=== PATIENT | male | born 1955 | race Caucasian/White ===

== ENCOUNTER 2021-08-25 05:48 | Inpatient (IN) | payer MEDICARE, BC ==
[~2021-08-25] VITALS: Ht 170.2 cm; Wt 79.1 kg
[2021-08-25] VITALS (26 sets, daily range): BP systolic 83–144; BP diastolic 27–79
[2021-08-25] MEDS ORDERED: diphenhydrAMINE 25mg capsule PO PRN ×2 (06:15→09:00)
[2021-08-25] MEDS ORDERED: normal saline 1,000 ML IV SCH (06:15)
[2021-08-25] MEDS ORDERED: LORazepam 0.5 MG tablet PO PRN (06:15)
[2021-08-25] MEDS ORDERED: nitroGLYCERIN 0.4mg SUBLingual tab SL PRN ×2 (06:15→09:55)
[2021-08-25] MEDS ORDERED: LISI20TA28 PO (06:28)
[2021-08-25] MEDS ORDERED: HYDR-3972 PO (06:28)
[2021-08-25] MEDS ORDERED: NITR0.4T48 (06:28)
[2021-08-25] MEDS ORDERED: BACL10TA PO (06:28)
[2021-08-25] MEDS ORDERED: NITR1PAT63 TOP (06:28)
[2021-08-25] MEDS ORDERED: potassium Cl 2 mEq/ml inj IV ONE (07:00)
[2021-08-25] MEDS ORDERED: heparin 10,000 units/1 ML INJ ONE (07:00)
[2021-08-25] MEDS ORDERED: papaverine 30 mg/ml 2ml inj. ONE (07:00)
[2021-08-25] MEDS ORDERED: FLU VACC QS2021-22(6MOS UP)/PF 60 MCG/0.5 ML SYRINGE IM ONE (07:25)
[2021-08-25] MEDS ORDERED: midazolam 1 mg/ML 2ml injection ONE ×3 (07:56→10:50)
[2021-08-25] MEDS ORDERED: LIDOcaine 1% (10mg/ml)w/preservative inj. 20ml MDV ONE (07:56)
[2021-08-25] MEDS ORDERED: iohexol 350 MG/ML 50ML vial IV ONE (07:56)
[2021-08-25] MEDS ORDERED: iohexol 350MG/ML 100ml bottle IV ONE (07:56)
[2021-08-25] MEDS ORDERED: fentaNYL/PF 50MCG/1 ML 2ML syringe ONE (07:56)
--- NOTE | 2021-08-25 08:15 | NUR ---
Pt to Neurology Tech
[2021-08-25] MEDS ORDERED: MESSAGE TO PHARMACY IJ ONE (09:00)
[2021-08-25] MEDS ORDERED: vancomycin/NS 1 GM ADD-VANTAGE 250 ML IV ONE (09:00)
[2021-08-25] MEDS ORDERED: potassium Cl 20 mEq SR tablet PO PRN ×2 (09:00→17:25)
[2021-08-25] MEDS ORDERED: MESSAGE TO NURSING PO ONE ×5 (09:00→10:00)
[2021-08-25] MEDS ORDERED: cefazolin/dext.iso 2gm/50ml 50 ML IV ONE (09:00)
[2021-08-25] MEDS ORDERED: gabapentin 400mg capsule PO ONE (09:00)
[2021-08-25] MEDS ORDERED: potassium Cl 20mEq/100mL bag 100 ML IV PRN (09:00)
[2021-08-25] MEDS ORDERED: dextrose 50%-water 50ml dispensing syringe IV PRN ×2 (09:00→17:25)
[2021-08-25] MEDS ORDERED: potassium Cl 40MEQ/1/2NS 520ml 520 ML IV PRN (09:00)
[2021-08-25] MEDS ORDERED: ondansetron 4mg rapidly disintigrating tab PO PRN (09:00)
[2021-08-25] MEDS ORDERED: potassium Cl 40MEQ/250ML bag 250 ML IV PRN (09:00)
[2021-08-25] MEDS ORDERED: magnesium 2GM in 50ml NS 50 ML IV PRN ×2 (09:00→17:25)
[2021-08-25] MEDS ORDERED: HYDROcodone/acetaminophen 5mg/325mg tablet PO PRN ×2 (09:00→09:55)
[2021-08-25] MEDS ORDERED: insulin glargine (Lantus) pen - multi-dose SQ PRN ×2 (09:00→17:25)
[2021-08-25] MEDS ORDERED: magnesium 4gm in 100ml NS 100 ML IV PRN ×2 (09:00→17:25)
[2021-08-25] MEDS ORDERED: MALTODEXTRIN/FRUCTOSE 0.68 KCAL/ML LIQUID 296ML BOTTLE PO ONE (09:00)
[2021-08-25] MEDS ORDERED: potassium CL 10mEq/100ml bag 100 ML IV PRN ×2 (09:00→17:25)
[2021-08-25] MEDS ORDERED: heparin 25,000 UNIT/250ml bag 250 ML IV ONE (09:16)
[2021-08-25] MEDS ORDERED: heparin 1,000unit/ml 10ml vial 10 ML ONE (09:16)
--- NOTE | 2021-08-25 09:35 | NUR ---
Return from rags laborer, pt surgical referral, orders received for pre-op prep.
[2021-08-25] MEDS ORDERED: ceFAZolin 1000mg inj ONE (09:46)
[2021-08-25] MEDS ORDERED: ondansetron/PF 4mg/2ml inj IV PRN ×2 (09:50→17:25)
[2021-08-25] MEDS ORDERED: heparin 25,000 UNIT/250ml bag 250 ML IV SCH (09:55)
[2021-08-25] MEDS ORDERED: HYDROcodone/acetaminophen 10/325mg tab PO PRN (09:55)
[2021-08-25] MEDS ORDERED: heparin 10,000 units/1 ML INJ IV PRN (09:55)
[2021-08-25] MEDS ORDERED: OXAZEpam 15mg capsule PO PRN (09:55)
[2021-08-25] MEDS ORDERED: proCHLORperazine 10 MG/2 ml inj IV PRN (09:55)
[2021-08-25] MEDS ORDERED: ringers solution, lacted 1,000 ML IV ONE (10:45)
[2021-08-25] MEDS ORDERED: SUFENTANIL CITRATE 50 MCG/ML 2ml ampule IV ONE ×2 (10:49→15:59)
[2021-08-25 11:27] LABS: BASOPHILS % (AUTO) 0.7 % (0-1); EOSINOPHILS # (AUTO) 0.1 X10'3 (0-0.9); EOSINOPHILS % (AUTO) 1.4 % (0-6); HEMATOCRIT 39.7 % (42.0-52.0); HEMOGLOBIN 13.2 g/dl (14.0-17.9); LYMPHOCYTES # (AUTO) 1.5 X10'3 (1.1-4.8); LYMPHOCYTES % (AUTO) 27.2 % (21-51); MEAN CORPUSCULAR HEMOGLOBIN 30.7 PG (27.0-31.0); MEAN CORPUSCULAR HGB CONC 33.3 g/dL (33.0-36.5); MEAN CORPUSCULAR VOLUME 92.1 FL (78-98); MEAN PLATELET VOLUME 8.4 FL (7.4-10.4); MONOCYTES # (AUTO) 0.5 X10'3 (0-0.9); MONOCYTES % (AUTO) 8.5 % (2-12); NEUTROPHILS # (AUTO) 3.5 X10'3 (1.8-7.7); NEUTROPHILS % (AUTO) 62.2 % (42-75); PLATELET COUNT 229 X10'3 (140-440); RED BLOOD COUNT 4.31 X10'6 (4.70-6.10); WHITE BLOOD COUNT 5.6 X10'3 (4.5-11.0)
[2021-08-25 11:38] LABS: ALBUMIN 3.3 G/DL (3.4-5.0); ANION GAP 7 (8-16); BLOOD UREA NITROGEN 15 MG/DL (7-18); BUN/CREATININE RATIO 13.9 (5.4-32.0); CALCIUM 8.8 MG/DL (8.5-10.1); CHLORIDE 104 MMOL/L (99-107); CREATININE 1.08 MG/DL (0.60-1.10); GLUCOSE 104 MG/DL (70-104); POTASSIUM 4.3 MMOL/L (3.5-5.1); SODIUM 137 MMOL/L (135-145); eGFR 68 ML/MIN
[2021-08-25 11:40] LABS: HEMOGLOBIN A1C 6.1 % (4.5-6.2)
[2021-08-25 11:53] LABS: ABG BASE EXCESS -2.6 mmol/L (-2.0-2.0); ABG HCO3 20.3 mmol/L (22.0-26.0); ABG OXYGEN SATURATION 96.3 % (94-97); ABG PCO2 (T) 30.1 mmHg (35.0-48.0); FCOHb 0.6 % (0.0-3.9); FO2Hb 95.7 % (94-97)
--- NOTE | 2021-08-25 12:00 | NUR ---
Pre-op CABG prep and testing being done, per orders.
[2021-08-25 12:07] LABS: APTT > 139 SECONDS (22-32)
[2021-08-25] MEDS ORDERED: amiodarone in dextrose, iso-osm 360mg/200ml bag IV ONE (12:17)
[2021-08-25] MEDS ORDERED: isoflurane 100ml inhalation liquid IH ONE (12:17)
[2021-08-25] MEDS ORDERED: nitroGLYCERIN in D5W 50mg/250ml (Tridil) infusion IV ONE (12:17)
[2021-08-25] MEDS ORDERED: rocuronium 10mg/ml inj IV ONE ×2 (12:17→17:55)
[2021-08-25] MEDS ORDERED: DOPamine/D5W 400mg/250ml bag IV ONE (12:17)
[2021-08-25] MEDS ORDERED: protamine sulf. 10mg/ml inj. IV ONE (12:17)
[2021-08-25 12:34] LABS: ABG BASE EXCESS -3.4 mmol/L (-2.0-2.0); ABG HCO3 20.4 mmol/L (22.0-26.0); ABG OXYGEN SATURATION 99.6 % (94-97); ABG PCO2 32.7 mmHg (35.0-48.0); ABG PO2 430.1 mmHg (75.0-100.0); CL (ABG) 107 mmol/L (98-110); FCOHb 0.3 % (0.0-3.9); FMetHb 0.3 % (0.0-1.5); GLUCOSE (ABG) 95 mg/dl (70-105); IONIZED CA (ABG) 1.18 mmol/L (1.10-1.43); K (ABG) 4.3 mmol/L (3.5-5.0); TOTAL HEMOGLOBIN 12.8 G/dl (14.0-18.0)
[2021-08-25] MEDS ORDERED: heparin 10,000 units/1 ML INJ IR ONE (13:23)
[2021-08-25] MEDS ORDERED: papaverine 30 mg/ml 2ml inj. IA ONE (13:24)
[2021-08-25 13:35] LABS: CLARITY,URINE CLEAR (Clear); COLOR,URINE YELLOW (Yellow); GLUCOSE, URINE NEGATIVE (Neg); KETONES,URINE NEGATIVE (Neg); LEUKOCYTE ESTERASE ,URINE NEGATIVE (Neg); NITRITES, URINE NEGATIVE (Neg); OCCULT BLOOD,URINE NEGATIVE (Neg); PROTEIN,URINE NEGATIVE (Neg); UROBILINOGEN,URINE 0.2 E.U/dL (0.2-1.0)
[2021-08-25 13:37] LABS: UA COLLECTION TYPE FOLEY CATH
[2021-08-25 13:39] LABS: ACT @ 1.70 U 346 SEC (193-297); ACT @ 2.84 U 453 SEC (260-420); BASELINE ACT 211 SEC (101-148); PATIENT WEIGHT 79.0k KG
[2021-08-25] MEDS ORDERED: ipratropium/albuterol 3ml nebule IH PRN (14:10)
[2021-08-25 14:18] LABS: ABG BASE EXCESS VENOUS -1.4 mmol/L (-2.0 - 2.0); ABG HCO3 VENOUS 22.8 mmol/L (21.0-28.0); ABG PCO2 VENOUS 35.8 mmHg (41.0-54.0); CL (ABG) 105 mmol/L (98-110); FCOHb VENOUS 0.8 %; FHHb VENOUS 10.6 %; FMetHb VENOUS 0.3 % (0.0 - 0.5); FO2Hb VENOUS 88.3 %; GLUCOSE (ABG) 118 mg/dl (70-105); IONIZED CA (ABG) 0.98 mmol/L (1.10-1.43); TOTAL HEMOGLOBIN 8.4 G/dl (14.0-18.0)
[2021-08-25 14:20] LABS: ABG BASE EXCESS -1.4 mmol/L (-2.0-2.0); ABG HCO3 21.8 mmol/L (22.0-26.0); ABG OXYGEN SATURATION 99.4 % (94-97); ABG PCO2 30.8 mmHg (35.0-48.0); ABG PO2 451.8 mmHg (75.0-100.0); CL (ABG) 106 mmol/L (98-110); FCOHb 0.4 % (0.0-3.9); FMetHb 0.3 % (0.0-1.5); FO2Hb 98.7 % (94-97); GLUCOSE (ABG) 126 mg/dl (70-105); IONIZED CA (ABG) 1.02 mmol/L (1.10-1.43); TOTAL HEMOGLOBIN 8.9 G/dl (14.0-18.0)
[2021-08-25 14:52] LABS: ABG BASE EXCESS 1.7 mmol/L (-2.0-2.0); ABG HCO3 25.6 mmol/L (22.0-26.0); ABG OXYGEN SATURATION 99.4 % (94-97); ABG PCO2 37.4 mmHg (35.0-48.0); CL (ABG) 105 mmol/L (98-110); FCOHb 0.3 % (0.0-3.9); FMetHb 0.3 % (0.0-1.5); FO2Hb 98.8 % (94-97); GLUCOSE (ABG) 134 mg/dl (70-105); IONIZED CA (ABG) 1.03 mmol/L (1.10-1.43); TOTAL HEMOGLOBIN 9.2 G/dl (14.0-18.0)
[2021-08-25 15:27] LABS: ABG BASE EXCESS 4.2 mmol/L (-2.0-2.0); ABG HCO3 28.3 mmol/L (22.0-26.0); ABG OXYGEN SATURATION 99.3 % (94-97); ABG PCO2 40.3 mmHg (35.0-48.0); ABG PO2 327.6 mmHg (75.0-100.0); CL (ABG) 104 mmol/L (98-110); FCOHb 0.1 % (0.0-3.9); FMetHb 0.3 % (0.0-1.5); FO2Hb 98.9 % (94-97); GLUCOSE (ABG) 142 mg/dl (70-105); IONIZED CA (ABG) 0.99 mmol/L (1.10-1.43); TOTAL HEMOGLOBIN 8.5 G/dl (14.0-18.0)
[2021-08-25 15:56] LABS: ABG BASE EXCESS -0.7 mmol/L (-2.0-2.0); ABG HCO3 23.4 mmol/L (22.0-26.0); ABG OXYGEN SATURATION 99.2 % (94-97); ABG PCO2 36.2 mmHg (35.0-48.0); ABG PO2 248.7 mmHg (75.0-100.0); CL (ABG) 108 mmol/L (98-110); FCOHb 0.3 % (0.0-3.9); FMetHb 0.3 % (0.0-1.5); FO2Hb 98.6 % (94-97); GLUCOSE (ABG) 153 mg/dl (70-105); IONIZED CA (ABG) 1.29 mmol/L (1.10-1.43); K (ABG) 5.4 mmol/L (3.5-5.0); TOTAL HEMOGLOBIN 8.3 G/dl (14.0-18.0)
[2021-08-25] MEDS ORDERED: METO-395 PO (16:06)
[2021-08-25] MEDS ORDERED: NITR0.4T51 SL (16:06)
[2021-08-25] MEDS ORDERED: BACL10TA2 PO (16:08)
[2021-08-25 16:28] LABS: ABG BASE EXCESS VENOUS 0.1 mmol/L (-2.0 - 2.0); ABG PCO2 VENOUS 41.5 mmHg (41.0-54.0); ABG PO2 VENOUS 36.2 mmHg (25.0-35.0); CL (ABG) 109 mmol/L (98-110); FHHb VENOUS 29.7 %; FMetHb VENOUS 0.3 % (0.0 - 0.5); GLUCOSE (ABG) 128 mg/dl (70-105); IONIZED CA (ABG) 1.22 mmol/L (1.10-1.43); K (ABG) 4.5 mmol/L (3.5-5.0); TOTAL HEMOGLOBIN 8.3 G/dl (14.0-18.0)
[2021-08-25 16:29] LABS: ACTIVATED CLOTTING TIME 122 SEC (101-148)
[2021-08-25] MEDS ORDERED: sodium phosphate inj. 30 MMOL in dextrose 5%-water 250 ML IV PRN (17:25)
[2021-08-25] MEDS ORDERED: bisacodyl 10mg suppository rectal RC PRN (17:25)
[2021-08-25] MEDS ORDERED: Neutra Phos packet PO PRN (17:25)
[2021-08-25] MEDS ORDERED: DOPamine 400mg/D5W 250ml 250 ML IV PRN (17:25)
[2021-08-25] MEDS ORDERED: acetaminophen 325mg tablet PO PRN ×2 (17:25)
[2021-08-25] MEDS ORDERED: nitroGLYCERIN-Tridil 50MG/D5W 250 ML IV PRN (17:25)
[2021-08-25] MEDS ORDERED: niCARDipine-NS 40mg/200ml IVPB 200 ML IV PRN (17:25)
[2021-08-25] MEDS ORDERED: magnesium hydroxide 30ml (MOM) UD suspension PO PRN (17:25)
[2021-08-25] MEDS ORDERED: sodium chloride 0.45% 1,000 ML IV SCH (17:25)
[2021-08-25] MEDS ORDERED: metoclopramide 5 mg/ml inj IV PRN (17:25)
[2021-08-25] MEDS ORDERED: normal saline 250ml IV soln 250 ML IV PRN (17:25)
[2021-08-25] MEDS ORDERED: mineral oil 133ml enema RC PRN (17:25)
[2021-08-25] MEDS ORDERED: Insulin Reg/NS 100units/100mL 100 ML IV SCH (17:25)
[2021-08-25] MEDS ORDERED: sodium phosphate inj. 15 MMOL in dextrose 5%-water 250 ML IV PRN (17:25)
[2021-08-25] MEDS ORDERED: magnesium citrate 296ml oral solution PO PRN (17:25)
--- NOTE | 2021-08-25 17:35 | NUR ---
RECEIVED FROM CVOR, NO PA LINE, CXR DONE, PULLED ETT BACK 1CM. JPX2 BULBS COMPRESSED, CT TO 20CM SX
[2021-08-25 17:52] LABS: ABG BASE EXCESS -2.8 mmol/L (-2.0-2.0); ABG HCO3 20.3 mmol/L (22.0-26.0); ABG OXYGEN SATURATION 97.8 % (94-97); ABG PCO2 (T) 28.6 mmHg (35.0-48.0); ABG PO2 (T) 127.5 mmHg (75.0-100.0); FCOHb 0.3 % (0.0-3.9); FMetHb 0.1 % (0.0-1.5); FO2Hb 97.4 % (94-97); PATIENT TEMPERATURE 36.4; PEEP 5 cm H2O; RESPIRATORY RATE 12 b/min; TIDAL VOLUME 600 mL; TOTAL HEMOGLOBIN 10.7 G/dl (14.0-18.0)
[2021-08-25] MEDS ORDERED: phenylephrine 10mg/ml inj. ONE (17:55)
[2021-08-25] MEDS ORDERED: LIDOcaine 2% (20mg/ml) 5ml vial ONE (17:55)
[2021-08-25] MEDS ORDERED: succinylcholine 20mg/ml inj IV ONE (17:55)
[2021-08-25] MEDS ORDERED: acetaminophen 1,000mg/100ml IV 100 ML IV ONE (17:55)
[2021-08-25] MEDS ORDERED: etomidate 2mg/ml inj. ONE (17:55)
--- NOTE | 2021-08-25 18:00 | NUR ---
Patient in room ICU 2044. I have received report from Tyrese AYON and had the opportunity to ask questions and assume patient care. Addendum: 08/26/21 at 0047 by Clarice Stark RN Amended: Links added.
--- NOTE | 2021-08-25 18:02 | NUR ---
REPORT TO FAIZA AYON
[2021-08-25] MEDS: morphine 4 MG/ML inj SYRINge IV PRN ×4 (18:03→21:49)
[2021-08-25 18:22] LABS: BASOPHILS % (AUTO) 0.1 % (0-1); EOSINOPHILS # (AUTO) 0.1 X10'3 (0-0.9); EOSINOPHILS % (AUTO) 0.5 % (0-6); HEMATOCRIT 30.3 % (42.0-52.0); HEMOGLOBIN 10.4 g/dl (14.0-17.9); LYMPHOCYTES % (AUTO) 9.9 % (21-51); MEAN CORPUSCULAR HEMOGLOBIN 31.3 PG (27.0-31.0); MEAN CORPUSCULAR HGB CONC 34.3 g/dL (33.0-36.5); MEAN CORPUSCULAR VOLUME 91.3 FL (78-98); MONOCYTES # (AUTO) 0.7 X10'3 (0-0.9); MONOCYTES % (AUTO) 7.4 % (2-12); NEUTROPHILS # (AUTO) 8.3 X10'3 (1.8-7.7); NEUTROPHILS % (AUTO) 82.1 % (42-75); PLATELET COUNT 190 X10'3 (140-440); RED BLOOD COUNT 3.32 X10'6 (4.70-6.10); WHITE BLOOD COUNT 10.1 X10'3 (4.5-11.0)
[2021-08-25 18:26] LABS: ALANINE AMINOTRANSFERASE 29 U/L (12-78); ALBUMIN 2.6 G/DL (3.4-5.0); ALBUMIN/GLOBULIN RATIO 1.4 (1.1-1.5); ALKALINE PHOSPHATASE 41 IU/L (46-116); ANION GAP 10 (8-16); ASPARTATE AMINO TRANSFERASE 43 U/L (10-37); BILIRUBIN,TOTAL 0.8 MG/DL (0.1-1.0); BLOOD UREA NITROGEN 14 MG/DL (7-18); CALCIUM 8.2 MG/DL (8.5-10.1); CHLORIDE 111 MMOL/L (99-107); CREATININE 1.08 MG/DL (0.60-1.10); GLUCOSE 147 MG/DL (70-104); MAGNESIUM 2.8 MG/DL (1.5-2.4); PHOSPHORUS 1.9 MG/DL (2.3-4.5); POTASSIUM 4.1 MMOL/L (3.5-5.1); SODIUM 145 MMOL/L (135-145); TOTAL CARBON DIOXIDE 24.1 MMOL/L (24-32); TOTAL PROTEIN 4.4 G/DL (6.4-8.2); eGFR 68 ML/MIN
[2021-08-25] MEDS: Insulin Reg/NS 100units/100mL 100 ML IV SCH (18:56)
[2021-08-25] MEDS: baclofen 10mg tablet PO SCH ×2 (19:00→21:00)
[2021-08-25] MEDS: propofol 1000mg/100ml bottle 100 ML IV SCH (19:00)
[2021-08-25] MEDS: potassium Cl 20mEq/100mL bag 100 ML IV PRN ×2 (19:06→21:50)
[2021-08-25] MEDS: albumin (Human) 5% 250ml 250 ML IV PRN ×2 (19:15→22:31)
[2021-08-25 19:17] LABS: APTT 24 SECONDS (22-32)
[2021-08-25] MEDS ORDERED: vancomycin/NS 1 GM ADD-VANTAGE 250 ML IV SCH (20:00)
[2021-08-25] MEDS: sennosides/docusate sodium tablet PO SCH (20:00)
[2021-08-25] MEDS: atorvastatin 10mg tablet PO SCH (21:00)
[2021-08-25] MEDS: gabapentin 300mg capsule PO SCH (21:49)
[2021-08-25] MEDS ORDERED: calcium chloride 100 MG/1 ML inj IV ONE (22:25)
--- NOTE | 2021-08-25 22:25 | NUR ---
Patient hypotensive, MAP 64. SR, Sats 100% on 40% FiO2. Open eyes, following commands. Dr. Camacho notified and updated on current hemodynamics, chest tube output and ILAN output. Orders received.
[2021-08-25] MEDS ORDERED: NORMAL SALINE IV ONE (22:35)
[2021-08-25] MEDS ORDERED: AMIODARONE IV ONE (22:35)
[2021-08-26] VITALS (31 sets, daily range): BP systolic 83–122; BP diastolic 51–76
[2021-08-26] MEDS: ceFAZolin/D5W- 1GM premix 50 ML IV SCH ×2 (00:17→08:21)
[2021-08-26] MEDS: albumin (Human) 5% 250ml 250 ML IV PRN (00:18)
[2021-08-26 00:23] LABS: ABG BASE EXCESS -5.1 mmol/L (-2.0-2.0); ABG HCO3 19.7 mmol/L (22.0-26.0); ABG OXYGEN SATURATION 96.8 % (94-97); ABG PCO2 (T) 34.8 mmHg (35.0-48.0); ABG PO2 (T) 103.8 mmHg (75.0-100.0); FCOHb 0.3 % (0.0-3.9); FMetHb 0.2 % (0.0-1.5); FO2Hb 96.3 % (94-97); PATIENT TEMPERATURE 36.7; PEEP 5 cm H2O; TOTAL HEMOGLOBIN 8.6 G/dl (14.0-18.0)
[2021-08-26 00:47] LABS: APTT 25 SECONDS (22-32)
[2021-08-26 00:51] LABS: ALANINE AMINOTRANSFERASE 28 U/L (12-78); ALBUMIN 3.4 G/DL (3.4-5.0); ALBUMIN/GLOBULIN RATIO 1.8 (1.1-1.5); ALKALINE PHOSPHATASE 35 IU/L (46-116); ANION GAP 12 (8-16); ASPARTATE AMINO TRANSFERASE 50 U/L (10-37); BILIRUBIN,TOTAL 0.7 MG/DL (0.1-1.0); BLOOD UREA NITROGEN 16 MG/DL (7-18); BUN/CREATININE RATIO 11.2 (5.4-32.0); CHLORIDE 111 MMOL/L (99-107); CREATININE 1.43 MG/DL (0.60-1.10); GLUCOSE 168 MG/DL (70-104); MAGNESIUM 2.2 MG/DL (1.5-2.4); PHOSPHORUS 2.4 MG/DL (2.3-4.5); POTASSIUM 4.1 MMOL/L (3.5-5.1); SODIUM 142 MMOL/L (135-145); TOTAL CARBON DIOXIDE 18.6 MMOL/L (24-32); TOTAL PROTEIN 5.3 G/DL (6.4-8.2); eGFR 49 ML/MIN
[2021-08-26] MEDS: propofol 1000mg/100ml bottle 100 ML IV SCH (00:59)
[2021-08-26 01:22] LABS: BASOPHILS % (AUTO) 0.1 % (0-1); EOSINOPHILS % (AUTO) 0 % (0-6); HEMATOCRIT 25.9 % (42.0-52.0); HEMOGLOBIN 8.9 g/dl (14.0-17.9); LYMPHOCYTES # (AUTO) 0.2 X10'3 (1.1-4.8); LYMPHOCYTES % (AUTO) 2.5 % (21-51); MEAN CORPUSCULAR HEMOGLOBIN 31.6 PG (27.0-31.0); MEAN CORPUSCULAR HGB CONC 34.4 g/dL (33.0-36.5); MEAN CORPUSCULAR VOLUME 91.9 FL (78-98); MEAN PLATELET VOLUME 8.7 FL (7.4-10.4); MONOCYTES # (AUTO) 0.5 X10'3 (0-0.9); MONOCYTES % (AUTO) 5.7 % (2-12); NEUTROPHILS # (AUTO) 8.8 X10'3 (1.8-7.7); NEUTROPHILS % (AUTO) 91.7 % (42-75); PLATELET COUNT 185 X10'3 (140-440); RED BLOOD COUNT 2.81 X10'6 (4.70-6.10); RED CELL DISTRIBUTION WIDTH 12.8 % (11.5-14.5); WHITE BLOOD COUNT 9.6 X10'3 (4.5-11.0)
[2021-08-26] MEDS ORDERED: vasopressin inj. 40 UNIT in dextrose 5%-water 50ml 38 ML IV SCH (01:45)
--- NOTE | 2021-08-26 01:45 | NUR ---
Dr. Camacho notified that patient is hypotensive again after CaCl and albumin given. Updated on current hemodynamics and output. Orders received. AM labs drawn, ABG obtained.
[2021-08-26] MEDS: mupirocin 2% nasal ointment 1gm UD NS SCH ×3 (02:08→19:30)
[2021-08-26] MEDS: potassium Cl 20mEq/100mL bag 100 ML IV PRN ×2 (02:08→05:50)
--- NOTE | 2021-08-26 02:53 | NUR ---
Dr. Camacho updated on current lab results including ABG. Orders received to start vasopressin at 0.02units/min.
--- NOTE | 2021-08-26 03:10 | NUR ---
AM chest xray obtained. Reviewed by Dr. Camacho. Orders received to increase Vasopressin to 0.04 units/min. Orders received to d/c femoral sheath before extubating. Obtain ABG prior to extubation.
[2021-08-26] MEDS: morphine 4 MG/ML inj SYRINge IV PRN ×2 (03:32→07:55)
[2021-08-26] MEDS ORDERED: atropine 0.1mg/ml 10ml syringe ONE (03:46)
--- NOTE | 2021-08-26 04:40 | NUR ---
Femoral sheath d/c'd without incident. Femostop applied after hemostasis achieved. Peripheral pulses detectable by palpation.
[2021-08-26] MEDS: amiodarone inj. 450 MG in dextrose 5%-water 241 ML IV SCH ×2 (05:49→21:10)
[2021-08-26] MEDS ORDERED: LORazepam 2 mg/ml vial IV ONE (06:00)
[2021-08-26] MEDS ORDERED: famotidine 20mg tablet PO ONE (06:00)
[2021-08-26] MEDS ORDERED: NORMAL SALINE IV ONE (06:05)
[2021-08-26] MEDS ORDERED: AMIODARONE IV ONE (06:05)
--- NOTE | 2021-08-26 06:37 | NUR ---
Problems reprioritized. Patient report given, questions answered & plan of care reviewed with Leila AYON.
[2021-08-26] MEDS: Insulin Reg/NS 100units/100mL 100 ML IV SCH (07:22)
[2021-08-26] MEDS: metoprolol tartrate 12.5mg (1/2 tablet) PO SCH ×2 (08:00→19:30)
[2021-08-26] MEDS ORDERED: pantoprazole 40MG/D5 100ML BAG 100 ML IV SCH (08:00)
[2021-08-26] MEDS: VANCOMYCIN 1GM/200ML IVPB 200 ML IV SCH ×2 (08:22→19:31)
[2021-08-26] MEDS: aspirin 325mg tablet, delayed-release (Ecotrin) PO SCH (08:22)
[2021-08-26] MEDS: sennosides/docusate sodium tablet PO SCH ×2 (08:22→19:30)
[2021-08-26] MEDS: gabapentin 300mg capsule PO SCH ×3 (08:22→21:59)
[2021-08-26] MEDS: baclofen 10mg tablet PO SCH ×3 (08:23→21:59)
[2021-08-26 09:38] LABS: ABG BASE EXCESS -2.9 mmol/L (-2.0-2.0); ABG HCO3 20.6 mmol/L (22.0-26.0); ABG OXYGEN SATURATION 95.7 % (94-97); ABG PCO2 (T) 31.9 mmHg (35.0-48.0); ABG PO2 (T) 85.7 mmHg (75.0-100.0); FO2Hb 95.7 % (94-97); PATIENT TEMPERATURE 37.7; PEEP 5 cm H2O; TIDAL VOLUME 357 mL; TOTAL HEMOGLOBIN 8.8 G/dl (14.0-18.0)
--- NOTE | 2021-08-26 11:24 | NUR ---
CABG Consult: Pt s/p emergent CABGx3 now extubated this AM per EMR. Pt would benefit from nutrition education once more appropriate prior to discharge. Addendum: 08/26/21 at [address] Amended: Links added.
[2021-08-26] MEDS: morphine 2 MG/ML inj. syringe IV PRN ×2 (13:13→19:31)
[2021-08-26] MEDS: HYDROcodone/acetaminophen 10/325mg tab PO PRN ×2 (13:14→19:31)
--- NOTE | 2021-08-26 18:42 | NUR ---
Shift Synopsis Upon arrival to shift this morning, the patient was on Vasopressin, Dopamine, intubated on SBT (tolerating well) and following commands. 0900-Dr. Camacho rounds and orders extubation. He is updated on drips and progress. R/T is paged to get ABGs and extubate. 0940-Patient is extubated to NC 4L satting in the mid-high90's. 1100-Femstop is removed. Right femoral site is flat, soft, and free of S&S of hematoma). 1130-I increase patient to semi-dunham's position and he has a very symptomatic hypotensive episode 60's/30's, diaphoretic and reporting back pain. He rebounds within 2 minutes and it resolves. 1200-Dr. Camacho and Dorian re-round. They are updated on progress and that the patient is off of all pressors and insulin drip. I receive orders that I can remain off of the insulin drip, switch to unit protocol of accuchecks, and progress diet. Patient has tolerated ice chips, water, and jello. DrTriny are updated on previous episode. 1300-Patient tolerated CL diet for lunch. Oral fluids are encouraged given his hourly output is right at 30cc/hr. 1415-PT is paged to come work with patient. Patient dangles successfully and wants to stand, but PT is not comfortable with this. 1425-Patient's BP is 87/51 (60) while dangling. Patient denies dizziness and states he "feels good." 5504-Ajnq-kjnecm back to semi-dunham's, BP rebounds to 103/62 with CI at 2.7 and CO at 5.1. 1545-Arterial line removed and Flotrak d/c. (Dr. Alarcon previously oks dc after we gather numbers from mobility/dangle). Last portion of shift, patient is in good spirits, visits with his bedside who had been updated, and talks on the phone extensively. He is compliant in use of his incentive spirometer, drinking fluids, and communicates needs well. End of shift goals, plans, and needed interventions are relayed to oncoming RNPetty including continually progressing with diet and removing non-functioning SWAN. Patient remains on Amio at .5 (16.7mL/hr) with all systems WNL. Distal pulses all WNL for entire shift.
[2021-08-26] MEDS: atorvastatin 10mg tablet PO SCH (21:59)
[2021-08-27] VITALS (14 sets, daily range): BP systolic 90–121; BP diastolic 55–98
[2021-08-27] MEDS: ceFAZolin/D5W- 1GM premix 50 ML IV SCH ×2 (00:54→10:37)
[2021-08-27 03:48] LABS: BASOPHILS % (AUTO) 0.1 % (0-1); EOSINOPHILS % (AUTO) 0 % (0-6); HEMATOCRIT 24.7 % (42.0-52.0); HEMOGLOBIN 8.3 g/dl (14.0-17.9); LYMPHOCYTES # (AUTO) 0.8 X10'3 (1.1-4.8); LYMPHOCYTES % (AUTO) 5.9 % (21-51); MEAN CORPUSCULAR HEMOGLOBIN 30.5 PG (27.0-31.0); MEAN CORPUSCULAR HGB CONC 33.5 g/dL (33.0-36.5); MEAN PLATELET VOLUME 9.5 FL (7.4-10.4); MONOCYTES # (AUTO) 1.1 X10'3 (0-0.9); MONOCYTES % (AUTO) 7.6 % (2-12); NEUTROPHILS # (AUTO) 12.1 X10'3 (1.8-7.7); NEUTROPHILS % (AUTO) 86.4 % (42-75); PLATELET COUNT 144 X10'3 (140-440); RED BLOOD COUNT 2.71 X10'6 (4.70-6.10); RED CELL DISTRIBUTION WIDTH 13.3 % (11.5-14.5)
[2021-08-27 04:09] LABS: ANION GAP 8 (8-16); BLOOD UREA NITROGEN 21 MG/DL (7-18); BUN/CREATININE RATIO 18.6 (5.4-32.0); CALCIUM 8.2 MG/DL (8.5-10.1); CHLORIDE 105 MMOL/L (99-107); CREATININE 1.13 MG/DL (0.60-1.10); GLUCOSE 130 MG/DL (70-104); MAGNESIUM 1.9 MG/DL (1.5-2.4); PHOSPHORUS 4.9 MG/DL (2.3-4.5); POTASSIUM 4.8 MMOL/L (3.5-5.1); SODIUM 137 MMOL/L (135-145); eGFR 65 ML/MIN
[2021-08-27] MEDS: HYDROcodone/acetaminophen 10/325mg tab PO PRN ×2 (05:35→17:38)
[2021-08-27] MEDS: gabapentin 300mg capsule PO SCH ×2 (08:30→15:10)
[2021-08-27] MEDS: aspirin 325mg tablet, delayed-release (Ecotrin) PO SCH (08:30)
[2021-08-27] MEDS: metoprolol tartrate 12.5mg (1/2 tablet) PO SCH ×2 (08:30→20:37)
[2021-08-27] MEDS: baclofen 10mg tablet PO SCH ×3 (08:30→20:37)
[2021-08-27] MEDS: sennosides/docusate sodium tablet PO SCH ×2 (08:30→20:37)
[2021-08-27] MEDS: pantoprazole 40mg Tablet.DR PO SCH (08:31)
[2021-08-27] MEDS: mupirocin 2% nasal ointment 1gm UD NS SCH (08:41)
[2021-08-27] MEDS ORDERED: magnesium 2GM in 50ml NS 50 ML IV PRN (09:20)
[2021-08-27] MEDS ORDERED: potassium Cl 20mEq/100mL bag 100 ML IV PRN (09:20)
[2021-08-27] MEDS ORDERED: potassium Cl 20 mEq SR tablet PO PRN (09:20)
[2021-08-27] MEDS ORDERED: potassium Cl 40MEQ/1/2NS 520ml 520 ML IV PRN (09:20)
[2021-08-27] MEDS ORDERED: potassium CL 10mEq/100ml bag 100 ML IV PRN (09:20)
[2021-08-27] MEDS ORDERED: magnesium 4gm in 100ml NS 100 ML IV PRN (09:20)
[2021-08-27] MEDS ORDERED: potassium Cl 40MEQ/250ML bag 250 ML IV PRN (09:20)
--- NOTE | 2021-08-27 10:20 | NUR ---
CHEST TUBE AND ILAN DRAIN REMOVED BY JOSUE GOLDMAN, SUTURE ON PUTURE SITE WAS WELL TIED AND DRESSED, NO BLEEDING NOTED Addendum: 08/27/21 at 1041 by Macy Lee RN Amended: Links added.
--- NOTE | 2021-08-27 11:35 | NUR ---
CABG Consult: Pt s/p extubation yesterday per EMR. Will provide education prior to discharge this admit. Addendum: 08/27/21 at [address] Amended: Links added.
--- NOTE | 2021-08-27 12:34 | NUR ---
Patient in room MED 314, transferred from ICU post CABG 3 vessels surgery. I have received report from Frandy Cavazos RN and had the opportunity to ask questions and assume patient care. I have personally assessed the patient. no change noted. will continue monitor.
[2021-08-27] MEDS: potassium Cl 20 mEq SR tablet PO SCH (19:30)
[2021-08-27] MEDS: magnesium Cl slow-release 64mg tablet PO SCH (20:37)
[2021-08-27] MEDS: atorvastatin 10mg tablet PO SCH (20:37)
[2021-08-28] MEDS: HYDROcodone/acetaminophen 10/325mg tab PO PRN ×2 (01:14→20:43)
[2021-08-28 02:00] VITALS: BP 107/68
[2021-08-28 07:00] VITALS: BP 102/67
[2021-08-28] MEDS: pantoprazole 40mg Tablet.DR PO SCH (07:41)
[2021-08-28] MEDS: aspirin 325mg tablet, delayed-release (Ecotrin) PO SCH (07:42)
[2021-08-28] MEDS: baclofen 10mg tablet PO SCH ×3 (07:42→20:43)
[2021-08-28] MEDS: metoprolol tartrate 12.5mg (1/2 tablet) PO SCH ×2 (07:43→20:42)
[2021-08-28 07:47] LABS: BASOPHILS % (AUTO) 0.1 % (0-1); EOSINOPHILS % (AUTO) 0.1 % (0-6); HEMATOCRIT 26.2 % (42.0-52.0); LYMPHOCYTES # (AUTO) 1.1 X10'3 (1.1-4.8); LYMPHOCYTES % (AUTO) 10.8 % (21-51); MEAN CORPUSCULAR HEMOGLOBIN 31.2 PG (27.0-31.0); MEAN CORPUSCULAR HGB CONC 34.3 g/dL (33.0-36.5); MEAN CORPUSCULAR VOLUME 90.8 FL (78-98); MEAN PLATELET VOLUME 9.8 FL (7.4-10.4); MONOCYTES # (AUTO) 0.9 X10'3 (0-0.9); MONOCYTES % (AUTO) 8.9 % (2-12); NEUTROPHILS # (AUTO) 8.3 X10'3 (1.8-7.7); NEUTROPHILS % (AUTO) 80.1 % (42-75); PLATELET COUNT 145 X10'3 (140-440); RED BLOOD COUNT 2.89 X10'6 (4.70-6.10); WHITE BLOOD COUNT 10.4 X10'3 (4.5-11.0)
[2021-08-28] MEDS: sennosides/docusate sodium tablet PO SCH ×2 (07:52→20:43)
[2021-08-28 08:23] LABS: ALBUMIN 2.9 G/DL (3.4-5.0); ANION GAP 9 (8-16); BLOOD UREA NITROGEN 25 MG/DL (7-18); CALCIUM 8.6 MG/DL (8.5-10.1); CHLORIDE 105 MMOL/L (99-107); GLUCOSE 102 MG/DL (70-104); SODIUM 139 MMOL/L (135-145); TOTAL CARBON DIOXIDE 25.4 MMOL/L (24-32); eGFR 75 ML/MIN
[2021-08-28 11:00] VITALS: BP 100/67
[2021-08-28] MEDS: potassium Cl 20 mEq SR tablet PO SCH ×2 (11:48→20:42)
[2021-08-28] MEDS: magnesium Cl slow-release 64mg tablet PO SCH ×2 (11:55→20:42)
[2021-08-28 15:00] VITALS: BP 109/70
[2021-08-28 18:00] VITALS: BP 112/63
--- NOTE | 2021-08-28 18:42 | NUR ---
Problems reprioritized. Patient report given, questions answered & plan of care reviewed with Marilyn AYON.
[2021-08-28] MEDS: atorvastatin 10mg tablet PO SCH (20:42)
[2021-08-28 22:00] VITALS: BP 105/66
[2021-08-29] VITALS (7 sets, daily range): BP systolic 74–117; BP diastolic 50–73
[2021-08-29 06:23] LABS: BASOPHILS % (AUTO) 0.2 % (0-1); EOSINOPHILS # (AUTO) 0.2 X10'3 (0-0.9); EOSINOPHILS % (AUTO) 2.1 % (0-6); HEMATOCRIT 29.7 % (42.0-52.0); HEMOGLOBIN 10.2 g/dl (14.0-17.9); LYMPHOCYTES # (AUTO) 1.2 X10'3 (1.1-4.8); LYMPHOCYTES % (AUTO) 15.4 % (21-51); MEAN CORPUSCULAR HEMOGLOBIN 31.6 PG (27.0-31.0); MEAN CORPUSCULAR HGB CONC 34.4 g/dL (33.0-36.5); MEAN CORPUSCULAR VOLUME 91.9 FL (78-98); MEAN PLATELET VOLUME 9.5 FL (7.4-10.4); MONOCYTES # (AUTO) 0.8 X10'3 (0-0.9); NEUTROPHILS # (AUTO) 5.8 X10'3 (1.8-7.7); NEUTROPHILS % (AUTO) 72.3 % (42-75); PLATELET COUNT 172 X10'3 (140-440); RED BLOOD COUNT 3.23 X10'6 (4.70-6.10); RED CELL DISTRIBUTION WIDTH 12.8 % (11.5-14.5)
--- NOTE | 2021-08-29 06:42 | NUR ---
Pt ambulated around unit, noted pulse ox was at 89%. Pt placed back on 2 L NC now satting 95-96%. WCTM
[2021-08-29] MEDS: sennosides/docusate sodium tablet PO SCH ×2 (07:50→20:00)
[2021-08-29] MEDS: metoprolol tartrate 12.5mg (1/2 tablet) PO SCH (07:51)
[2021-08-29] MEDS: HYDROcodone/acetaminophen 10/325mg tab PO PRN (07:51)
[2021-08-29] MEDS: pantoprazole 40mg Tablet.DR PO SCH (07:51)
[2021-08-29] MEDS: aspirin 325mg tablet, delayed-release (Ecotrin) PO SCH (07:51)
[2021-08-29] MEDS: potassium Cl 20 mEq SR tablet PO SCH ×2 (08:00→20:00)
[2021-08-29] MEDS: magnesium Cl slow-release 64mg tablet PO SCH ×2 (08:00→20:00)
[2021-08-29 08:10] LABS: BLOOD UREA NITROGEN 21 MG/DL (7-18); BUN/CREATININE RATIO 25.3 (5.4-32.0); CALCIUM 8.9 MG/DL (8.5-10.1); CREATININE 0.83 MG/DL (0.60-1.10); GLUCOSE 107 MG/DL (70-104); TOTAL CARBON DIOXIDE 25.7 MMOL/L (24-32); eGFR > 90 ML/MIN
[2021-08-29 08:58] LABS: MAGNESIUM 2.3 MG/DL (1.5-2.4)
[2021-08-29] MEDS: baclofen 10mg tablet PO SCH ×3 (09:20→21:07)
[2021-08-29] MEDS ORDERED: ketorolac trometh. 30mg/ml inj. IV ONE (09:20)
[2021-08-29] MEDS ORDERED: ATOR10TA PO (09:23)
[2021-08-29] MEDS ORDERED: LOP12.5T PO ×2 (09:23)
[2021-08-29] MEDS ORDERED: ASPI-1071 PO (09:23)
[2021-08-29] MEDS ORDERED: LIDO700A47 TP (09:23)
[2021-08-29] MEDS: LIDOcaine 5% patch TP SCH (10:10)
[2021-08-29] MEDS ORDERED: IBUP-1986 PO (11:56)
[2021-08-29 13:20] LABS: POTASSIUM 4.3 MMOL/L (3.3-5.1)
[2021-08-29] MEDS ORDERED: normal saline 500ml IV soln 500 ML IV ONE (16:45)
--- NOTE | 2021-08-29 18:30 | NUR ---
Patient was prepared for discharge but while getting into wheelchair became very dizzy, "like I was going to black out". Patient wheeled back to room and vitals checked. Patients bp was 74/50 w/ a hr of 84. Patient was assisted back to bed and bp rechecked and I called Jt Bennett (sp?) ALEJANDRO for Dr Camacho who gave orders to put patient back on the monitor, keep him for a couple hours and see how he is doing and said he had a similar episode the other day where he seemed to vagel and it took a bit to recover. Through the next couple hours blood pressure stayed in 90's and low 100's systolic and HR still in the 80's, low 90's. I did orthostatic vitals on patient which came out okay... 107/67 laying/ 94/62 sitting/ 102/54 standing. I then walked the patient half way around unit and back to room where he was continuing complaining about "just not feeling well", with a nausea like feeling. I rechecked his BP and he had dropped to 78/43. I called Dr Camacho and he gave orders for a CXR, CBC, EKG, dc metoprolol, type and cross incase blood may be needed and he was on his way to see patient. arrived and assessed patient and felt that he could be fluid deficient and ordered a 500cc bolus of ns where after we would recheck orthostatics and if he was still symptomatic give a second 500cc bolus of ns. Lying blood pressure was better upon Dr Camacho's arrival where systolic was 124, patient has not been symptomatic since that time but he has also not got up. 1st bolus just finished. Aide will check orthostatic BP and walk patient around unit if appropriate to BP and repeat later this evening. Nicci RN, ARY RN to follow up on orders and give 2nd bolus if needed. Patient feeling better at time of shift change.
--- NOTE | 2021-08-29 19:26 | NUR ---
Report given to Nicci AYON, noc shift. Patient doing well in bed eating dinner.
[2021-08-29 20:06] LABS: BASOPHILS % (AUTO) 0.2 % (0-1); EOSINOPHILS # (AUTO) 0.2 X10'3 (0-0.9); EOSINOPHILS % (AUTO) 2.8 % (0-6); HEMATOCRIT 29.4 % (42.0-52.0); LYMPHOCYTES % (AUTO) 13.2 % (21-51); MEAN CORPUSCULAR HEMOGLOBIN 31.2 PG (27.0-31.0); MEAN CORPUSCULAR VOLUME 91.9 FL (78-98); MEAN PLATELET VOLUME 9.5 FL (7.4-10.4); MONOCYTES # (AUTO) 0.7 X10'3 (0-0.9); MONOCYTES % (AUTO) 9.2 % (2-12); NEUTROPHILS # (AUTO) 5.9 X10'3 (1.8-7.7); NEUTROPHILS % (AUTO) 74.6 % (42-75); PLATELET COUNT 189 X10'3 (140-440); RED CELL DISTRIBUTION WIDTH 12.8 % (11.5-14.5); WHITE BLOOD COUNT 7.9 X10'3 (4.5-11.0)
[2021-08-29] MEDS: atorvastatin 10mg tablet PO SCH (21:07)
[2021-08-29] MEDS: midodrine 5mg tablet PO SCH (21:26)
[2021-08-30 02:00] VITALS: BP 109/70
[2021-08-30] MEDS: HYDROcodone/acetaminophen 10/325mg tab PO PRN ×2 (05:54→20:20)
--- NOTE | 2021-08-30 06:39 | NUR ---
Problems reprioritized. Patient report given, questions answered & plan of care reviewed with FAITH..
--- NOTE | 2021-08-30 06:41 | NUR ---
Problems reprioritized. Patient report received, questions answered & plan of care reviewed with NANY ARELLANO.
[2021-08-30 07:02] LABS: BASOPHILS % (AUTO) 0.4 % (0-1); EOSINOPHILS # (AUTO) 0.3 X10'3 (0-0.9); EOSINOPHILS % (AUTO) 3.6 % (0-6); HEMATOCRIT 29.7 % (42.0-52.0); HEMOGLOBIN 10.1 g/dl (14.0-17.9); LYMPHOCYTES # (AUTO) 1.2 X10'3 (1.1-4.8); LYMPHOCYTES % (AUTO) 14.5 % (21-51); MEAN CORPUSCULAR HEMOGLOBIN 31.1 PG (27.0-31.0); MEAN CORPUSCULAR HGB CONC 34.1 g/dL (33.0-36.5); MEAN CORPUSCULAR VOLUME 91.4 FL (78-98); MEAN PLATELET VOLUME 9.1 FL (7.4-10.4); MONOCYTES # (AUTO) 0.9 X10'3 (0-0.9); MONOCYTES % (AUTO) 10.6 % (2-12); NEUTROPHILS # (AUTO) 5.9 X10'3 (1.8-7.7); NEUTROPHILS % (AUTO) 70.9 % (42-75); PLATELET COUNT 210 X10'3 (140-440); RED BLOOD COUNT 3.25 X10'6 (4.70-6.10); RED CELL DISTRIBUTION WIDTH 12.8 % (11.5-14.5); WHITE BLOOD COUNT 8.3 X10'3 (4.5-11.0)
[2021-08-30 07:20] LABS: ALBUMIN 2.8 G/DL (3.4-5.0); ANION GAP 6 (8-16); BLOOD UREA NITROGEN 16 MG/DL (7-18); BUN/CREATININE RATIO 21.9 (5.4-32.0); CALCIUM 8.9 MG/DL (8.5-10.1); CHLORIDE 108 MMOL/L (99-107); CREATININE 0.73 MG/DL (0.60-1.10); GLUCOSE 110 MG/DL (70-104); SODIUM 139 MMOL/L (135-145); TOTAL CARBON DIOXIDE 24.6 MMOL/L (24-32); eGFR > 90 ML/MIN
[2021-08-30 07:32] LABS: POTASSIUM 4.6 MMOL/L (3.5-5.1)
[2021-08-30] MEDS: midodrine 5mg tablet PO SCH ×3 (07:48→16:21)
[2021-08-30] MEDS: potassium Cl 20 mEq SR tablet PO SCH (07:48)
[2021-08-30] MEDS: sennosides/docusate sodium tablet PO SCH ×2 (07:48→20:20)
[2021-08-30] MEDS: baclofen 10mg tablet PO SCH (07:48)
[2021-08-30] MEDS: magnesium Cl slow-release 64mg tablet PO SCH ×2 (07:48→20:20)
[2021-08-30] MEDS: pantoprazole 40mg Tablet.DR PO SCH (07:48)
[2021-08-30] MEDS: aspirin 325mg tablet, delayed-release (Ecotrin) PO SCH (07:48)
[2021-08-30] MEDS: LIDOcaine 5% patch TP SCH (07:48)
--- NOTE | 2021-08-30 11:09 | NUR ---
Pt ambulated around unit x2 no distress/sob noted.O2 at 96 RA
--- NOTE | 2021-08-30 12:31 | NUR ---
Initial: Pt admit dx CAD s/p CABG per EMR. Pt currently on heart healthy diet w/ mostly 100% PO and meeting estimated nutrient needs. LBM 3/, receiving routine bowel care per EMR. promotions intern rovided high protein/heart healthy nutrition education to pt at bedside w/ RD contact information. Will continue to monitor for nutrient needs this admit. 1. Continue heart healthy diet 2. Routine bowel care 3. Scaled wt this admit, weekly scaled wts thereafter Addendum: 08/30/21 at [address] Vázquez RD Amended: Links added. Addendum: 08/30/21 at [address] I have reviewed assessment by quality intern
--- NOTE | 2021-08-30 12:50 | NUR ---
Pt ambulated around unit x2 . ortho vitals improved. denied SOB at this time
[2021-08-30 14:00] VITALS: BP 111/66
[2021-08-30 14:07] LABS: K (ABG) 7.9 mmol/L (3.5-5.0)
[2021-08-30 14:08] LABS: K (ABG) 7.4 mmol/L (3.5-5.0)
[2021-08-30 14:09] LABS: K (ABG) 6.5 mmol/L (3.5-5.0)
--- NOTE | 2021-08-30 14:20 | NUR ---
PT AMBULATED NO DISTRESS NOTED
--- NOTE | 2021-08-30 17:49 | NUR ---
Pt ambulated around unit x3 . ortho vitals improved. standing 111/66, sitting 132/76 denied SOB at this time DR Camacho notified.
[2021-08-30 18:00] VITALS: BP 118/77
[2021-08-30] MEDS: atorvastatin 10mg tablet PO SCH (20:20)
--- NOTE | 2021-08-30 21:30 | NUR ---
Patient ambulate around the unit x6 no complaint of pain or shortness of breath noted
[2021-08-30 22:00] VITALS: BP 118/77
[2021-08-31 02:00] VITALS: BP 102/67
[2021-08-31 06:00] VITALS: BP 129/82
[2021-08-31 06:15] LABS: ALBUMIN 2.9 G/DL (3.4-5.0); ANION GAP -1 (8-16); BLOOD UREA NITROGEN 18 MG/DL (7-18); CALCIUM 9.2 MG/DL (8.5-10.1); CHLORIDE 105 MMOL/L (99-107); GLUCOSE 98 MG/DL (70-104); POTASSIUM 4.9 MMOL/L (3.5-5.1); SODIUM 137 MMOL/L (135-145); eGFR 84 ML/MIN
--- NOTE | 2021-08-31 06:24 | NUR ---
Problems reprioritized. Patient report given, questions answered & plan of care reviewed with Kenneth AYON .
[2021-08-31] MEDS: pantoprazole 40mg Tablet.DR PO SCH (07:23)
[2021-08-31] MEDS: midodrine 5mg tablet PO SCH ×3 (07:24→16:05)
[2021-08-31] MEDS: aspirin 325mg tablet, delayed-release (Ecotrin) PO SCH (07:24)
[2021-08-31] MEDS: sennosides/docusate sodium tablet PO SCH ×2 (07:25→20:34)
[2021-08-31] MEDS: magnesium Cl slow-release 64mg tablet PO SCH ×2 (07:25→20:34)
[2021-08-31] MEDS: LIDOcaine 5% patch TP SCH (07:26)
[2021-08-31] MEDS: diatr meglu/diatrizoate 30ml oral sol.-(3 dose) bottle PO SCH ×3 (09:00→15:00)
[2021-08-31] MEDS ORDERED: diphenhydrAMINE 50 mg/ml inj IM ONE (09:50)
[2021-08-31 11:00] VITALS: BP_SYST 112; BP_SYST 12; BP_DIAS 75; BP_DIAS 80
[2021-08-31] MEDS ORDERED: iohexol 300mg/ml 100ml inj. ONE (15:57)
[2021-08-31 18:00] VITALS: BP 113/60
--- NOTE | 2021-08-31 18:15 | NUR ---
Patient in room MED 314. I have received report from NANY Cooper and had the opportunity to ask questions and assume patient care. Patient resting comfortably on bed, he is A&Ox4, [place] and is appropriate. Helped him boost up in bed.
--- NOTE | 2021-08-31 19:14 | NUR ---
Dr. Camacho at the bedside, patient has a PE and he would like Eliquis 5mg BID started tonight and an US of BLE to r/o DVT for tomorrow.
[2021-08-31] MEDS: apixaban 5mg tablet PO SCH (20:34)
[2021-08-31] MEDS: atorvastatin 10mg tablet PO SCH (20:34)
[2021-08-31 22:00] VITALS: BP 95/64
[2021-09-01 02:00] VITALS: BP 91/61
[2021-09-01 05:43] LABS: BASOPHILS # (AUTO) 0.1 X10'3 (0-0.2); BASOPHILS % (AUTO) 0.8 % (0-1); EOSINOPHILS # (AUTO) 0.3 X10'3 (0-0.9); EOSINOPHILS % (AUTO) 3.2 % (0-6); HEMOGLOBIN 10.1 g/dl (14.0-17.9); LYMPHOCYTES # (AUTO) 1.1 X10'3 (1.1-4.8); LYMPHOCYTES % (AUTO) 13.8 % (21-51); MEAN CORPUSCULAR HGB CONC 33.8 g/dL (33.0-36.5); MEAN CORPUSCULAR VOLUME 91.9 FL (78-98); MEAN PLATELET VOLUME 8.8 FL (7.4-10.4); MONOCYTES # (AUTO) 0.9 X10'3 (0-0.9); MONOCYTES % (AUTO) 10.7 % (2-12); NEUTROPHILS # (AUTO) 5.9 X10'3 (1.8-7.7); NEUTROPHILS % (AUTO) 71.5 % (42-75); PLATELET COUNT 248 X10'3 (140-440); RED BLOOD COUNT 3.26 X10'6 (4.70-6.10); RED CELL DISTRIBUTION WIDTH 13.3 % (11.5-14.5); WHITE BLOOD COUNT 8.3 X10'3 (4.5-11.0)
[2021-09-01 06:00] VITALS: BP 103/67
[2021-09-01 06:02] LABS: ALANINE AMINOTRANSFERASE 31 U/L (12-78); ALBUMIN/GLOBULIN RATIO 0.9 (1.1-1.5); ALKALINE PHOSPHATASE 70 IU/L (46-116); ANION GAP 7 (8-16); ASPARTATE AMINO TRANSFERASE 19 U/L (10-37); BILIRUBIN,TOTAL 0.5 MG/DL (0.1-1.0); BLOOD UREA NITROGEN 17 MG/DL (7-18); BUN/CREATININE RATIO 17.3 (5.4-32.0); CALCIUM 8.7 MG/DL (8.5-10.1); CHLORIDE 104 MMOL/L (99-107); CREATININE 0.98 MG/DL (0.60-1.10); GLUCOSE 100 MG/DL (70-104); MAGNESIUM 2.3 MG/DL (1.5-2.4); PHOSPHORUS 4.3 MG/DL (2.3-4.5); SODIUM 138 MMOL/L (135-145); TOTAL CARBON DIOXIDE 27.3 MMOL/L (24-32); TOTAL PROTEIN 6.2 G/DL (6.4-8.2); eGFR 76 ML/MIN
--- NOTE | 2021-09-01 06:48 | NUR ---
Problems reprioritized. Patient report given, questions answered & plan of care reviewed with NANY Zazueta.
[2021-09-01] MEDS ORDERED: APIX5TAB3 PO (08:41)
[2021-09-01] MEDS ORDERED: MIDO5TAB4 PO (09:00)
[2021-09-01] MEDS: magnesium Cl slow-release 64mg tablet PO SCH (10:06)
[2021-09-01] MEDS: aspirin 325mg tablet, delayed-release (Ecotrin) PO SCH (10:06)
[2021-09-01] MEDS: sennosides/docusate sodium tablet PO SCH (10:06)
[2021-09-01] MEDS: midodrine 5mg tablet PO SCH (10:06)
[2021-09-01] MEDS: apixaban 5mg tablet PO SCH (10:06)
[2021-09-01] MEDS: pantoprazole 40mg Tablet.DR PO SCH (10:07)
[2021-09-01] MEDS: LIDOcaine 5% patch TP SCH (10:15)
[2021-09-01 11:00] VITALS: BP 105/67
[2021-09-01 12:00] VITALS: BP 103/67
== END 2021-09-01 13:40 | disposition home or self-care (01) | DRG 233 ==
LOC: SSTAY O 05:48 → ICU 2S 09:09 → MED 3N 08-27 12:17
PROVIDERS: ADMIT Thoracic Surgery (Cardiothoracic Vascular Surgery); ATTEND Internal Medicine Cardiovascular Disease
PROC: B2111ZZ Fluoroscopy of Multiple Coronary Arteries using Low Osmolar Contrast (ICD-10-PCS; 2021-08-25)
PROC: 021109W Bypass Coronary Artery, Two Arteries from Aorta with Autologous Venous Tissue, Open Approach (ICD-10-PCS; 2021-08-25)
PROC: 06BQ4ZZ Excision of Left Saphenous Vein, Percutaneous Endoscopic Approach (ICD-10-PCS; 2021-08-25)
PROC: 4A023N7 Measurement of Cardiac Sampling and Pressure, Left Heart, Percutaneous Approach (ICD-10-PCS; 2021-08-25)
PROC: B41D1ZZ Fluoroscopy of Aorta and Bilateral Lower Extremity Arteries using Low Osmolar Contrast (ICD-10-PCS; 2021-08-25)
PROC: B3111ZZ Fluoroscopy of Right Brachiocephalic-Subclavian Artery using Low Osmolar Contrast (ICD-10-PCS; 2021-08-25)
PROC: B31N1ZZ Fluoroscopy of Other Upper Arteries using Low Osmolar Contrast (ICD-10-PCS; 2021-08-25)
PROC: B3121ZZ Fluoroscopy of Left Subclavian Artery using Low Osmolar Contrast (ICD-10-PCS; 2021-08-25)
PROC: B2151ZZ Fluoroscopy of Left Heart using Low Osmolar Contrast (ICD-10-PCS; 2021-08-25)
PROC: 5A1221Z Performance of Cardiac Output, Continuous (ICD-10-PCS; 2021-08-25)
PROC: B24BZZ4 Ultrasonography of Heart with Aorta, Transesophageal (ICD-10-PCS; 2021-08-25)
PROC: 30233M1 Transfusion of Nonautologous Plasma Cryoprecipitate into Peripheral Vein, Percutaneous Approach (ICD-10-PCS; 2021-08-25)
PROC: 30233R1 Transfusion of Nonautologous Platelets into Peripheral Vein, Percutaneous Approach (ICD-10-PCS; 2021-08-25)
PROC: 02100Z9 Bypass Coronary Artery, One Artery from Left Internal Mammary, Open Approach (ICD-10-PCS; principal; 2021-08-25 12:17)
PROC: BW281ZZ Computerized Tomography (CT Scan) of Head using Low Osmolar Contrast (ICD-10-PCS; 2021-08-31)
PROC: BW251ZZ Computerized Tomography (CT Scan) of Chest, Abdomen and Pelvis using Low Osmolar Contrast (ICD-10-PCS; 2021-08-31)
DX: I25.119 Atherosclerotic heart disease of native coronary artery with unspecified angina pectoris (principal); N17.0 Acute kidney failure with tubular necrosis; I26.99 Other pulmonary embolism without acute cor pulmonale; I47.1 Supraventricular tachycardia; I82.451 Acute embolism and thrombosis of right peroneal vein; I82.432 Acute embolism and thrombosis of left popliteal vein; Z20.822 Contact with and (suspected) exposure to COVID-19; M41.9 Scoliosis, unspecified; M54.2 Cervicalgia; D35.1 Benign neoplasm of parathyroid gland; I10 Essential (primary) hypertension; I95.1 Orthostatic hypotension; Z28.21 Immunization not carried out because of patient refusal; R11.0 Nausea
CPT/HCPCS: 0232T; 93306; 93312; 93325; 93458; 93567; 36415; 36430; 36600; 70470; 71045; 71260; 74177; 80048; 80053; 81003; 82330; 82435; 82803; 82947; 82948; 83036; 83735; 84100; 84132; 84295; 84443; 85018; 85025; 85347; 85384; 85610; 85730; 86885; 86900; 86901; 86920; 87635; 93005; 93880; 93970; 93971; 94002; 94003; 94760; 97110; 97116; 97161; 97162; 97530; 99152; 99153; A4618; A4620; A6258; A6402; A6449; A7000; A7048; C1751; C1769; C9113; G0378; J0131; J0282; J0330; J0461; J0690; J1200; J1265; J1644; J1815; J1885; J2250; J2270; J2370; J2405; J2440; J2704; J2720; J3010; J3370; J3480; J3490; J7030; J7040; J7050; J7060; J7120; P9012; P9035; P9045; Q0163; Q9963; Q9967